=== PATIENT | female | born 1940 | race Caucasian/White ===

== ENCOUNTER 2018-01-19 05:37 | Inpatient (IN) | payer OTHER, MEDICARE ==
[2018-01-19] VITALS (14 sets, daily range): BP systolic 92–185; BP diastolic 55–86; PULSE 51–71; RESP 15–18; TEMP 97.1–98.7; O2SAT 95–99
[~2018-01-19] VITALS: Ht 160 cm; Wt 60.3 kg
[~2018-01-19 05:37] MED LIST: ACTO5TAB; FOLITAB6 PO; NITR.4 SL; ROSU5 OR; ST J81CH PO; VITA400C28 PO
[2018-01-19] MEDS ORDERED: ASPI-516 CHEW (05:56)
[2018-01-19] MEDS ORDERED: VITATAB25 PO (05:56)
[2018-01-19] MEDS ORDERED: ROSU5 PO (05:56)
[2018-01-19] MEDS ORDERED: SODIUM CHLORIDE 0.9% FLUSH 10 ML FLUSH IVF PRN (06:00)
--- NOTE | 2018-01-19 06:11 | PD ---
HPI Chief Complaint: Fall Time Seen by Provider: 05:59 Travel History International Travel<30 days: No Contact w/Intl Traveler<30days: No Traveled to known affect area: No History of Present Illness HPI 77-year-old female patient presents to the ER today, apparently had tripped at home and fell hitting her forehead, has a small laceration to the left forehead , having left hip pain, could not get herself back up since 11 PM last night. She denies any chest pains, shortness of breath, or other injuries. Modifying Factors: None Associated Signs & Symptoms: Trip and fall, head injury, left hip injury Risk Factors: Elderly PFSH Past Medical History Cancer: No Cardiovascular Problems: Yes High Cholesterol: Yes Chest Pain: Yes Coronary Artery Disease: Yes Endocrine: No Genitourinary: No Immune Disorder: No Musculoskeletal: Yes (OSTEOPOROSIS) Neurologic: No Psychiatric: No Respiratory: No Influenza Vaccination: Yes Menopausal: Yes Past Surgical History Eye Surgery: Yes (LEFT EYE SURGERY FOR "WONDERING EYE") Other Surgery: Yes (ANGIOGRAM) Social History Alcohol Use: Yes (1-2 BEERS EVERY EVENING) Tobacco Use: Yes (1/2 PPD) Substance Use: No Allergies-Medications (Allergen,Severity, Reaction): Coded Allergies: No Known Allergies (Verified , 01/19/12) Reported Meds & Prescriptions Reported Meds & Active Scripts Active Reported Crestor (Rosuvastatin Calcium) 5 Mg Tab 5 Mg PO DAILY Vitamin D-[address] (Cholecalciferol) 1,000 Unit Tab 50,000 Units PO DAILY Aspirin 81 Mg Chew 81 Mg CHEW DAILY Review of Systems Except as stated in HPI: all other systems reviewed are Neg Physical Exam Narrative GENERAL: Well-developed elderly white female patient currently and moderate distress. Awake and oriented 3. SKIN: Focused skin assessment warm/dry. HEAD: 2 cm left forehead laceration which is fairly shallow. Normocephalic. EYES: Pupils equal and round. No scleral icterus. No injection or drainage. ENT: No nasal bleeding or discharge. Mucous membranes pink and moist. NECK: Trachea midline. No JVD. CARDIOVASCULAR: Regular rate and rhythm. No murmur appreciated. RESPIRATORY: No accessory muscle use. Clear to auscultation. Breath sounds equal bilaterally. GASTROINTESTINAL: Abdomen soft, non-tender, nondistended. Hepatic and splenic margins not palpable. Pelvis: Stable, tender to palpation in the left hip, and internally rotated and shortened left leg. MUSCULOSKELETAL: No obvious deformities. No clubbing. No cyanosis. No edema. NEUROLOGICAL: Awake and alert. No obvious cranial nerve deficits. Motor grossly within normal limits. Normal speech. PSYCHIATRIC: Appropriate mood and affect; insight and judgment normal. Data Data Last Documented VS Vital Signs Date Time Temp Pulse Resp B/P (MAP) Pulse Ox O2 Delivery O2 Flow Rate FiO2 01/19/18 05:43 97.8 56 18 176/77 (110) 96 Orders Orders Basic Metabolic Panel (Bmp) (01/19/18 06:00) Complete Blood Count With Diff (01/19/18 06:00) Act Partial Throm Time (Ptt) (01/19/18 06:00) Prothrombin Time / Inr (Pt) (01/19/18 06:00) Ct Brain W/O Iv Contrast(Rout) (01/19/18 06:00) Ecg Monitoring (01/19/18 06:00) Iv Access Insert/Monitor (01/19/18 06:00) Oximetry (01/19/18 06:00) Sodium Chloride 0.9% Flush (Ns Flush) (01/19/18 06:00) Creatine Kinase (Cpk) (01/19/18 06:00) Chest, Single Ap (01/19/18 06:00) Hip, Uni(Ap&Lat) W Ap Pelvis (01/19/18 06:00) Admit Order (Ed Use Only) (01/19/18 06:46) Consult Orthopedic (01/19/18 ) Admit To Inpatient (01/19/18 ) Vital Signs (Adult) Q4H (01/19/18 06:46) Activity Bed Rest With Brp (01/19/18 06:46) Diet Npo (01/19/18 Breakfast) Sodium Chlor 0.9% 1000 Ml Inj (Ns 1000 M (01/19/18 06:46) Sodium Chloride 0.9% Flush (Ns Flush) (01/19/18 07:00) Sodium Chloride 0.9% Flush (Ns Flush) (01/19/18 09:00) Acetaminophen (Tylenol) (01/19/18 07:00) Ondansetron Inj (Zofran Inj) (01/19/18 07:00) Comprehensive Metabolic Panel (01/20/18 06:00) Complete Blood Count With Diff (01/20/18 06:00) Pt Request For Service (01/19/18 06:46) Case Management Consult (01/19/18 06:46) Naloxone Inj (Narcan Inj) (01/19/18 07:00) Docusate Sodium-Senna (Veronica-Colace) (01/19/18 09:00) Magnesium Hydroxide Liq (Milk Of Magnesi (01/19/18 07:00) Sennosides (Senokot) (01/19/18 07:00) Bisacodyl Supp (Dulcolax Supp) (01/19/18 07:00) Lactulose Liq (Lactulose Liq) (01/19/18 07:00) Inpatient Certification (01/19/18 ) (Nf) Rosuvastatin (Crestor) (01/19/18 09:00) Labs Laboratory Tests Test 01/19/18 06:00 White Blood Count 12.0 TH/MM3 Red Blood Count 3.23 MIL/MM3 Hemoglobin 11.2 GM/DL Hematocrit 31.5 % Mean Corpuscular Volume 97.4 FL Mean Corpuscular Hemoglobin 34.6 PG Mean Corpuscular Hemoglobin Concent 35.5 % Red Cell Distribution Width 13.3 % Platelet Count 138 TH/MM3 Mean Platelet Volume 8.7 FL Neutrophils (%) (Auto) 83.6 % Lymphocytes (%) (Auto) 8.6 % Monocytes (%) (Auto) 6.7 % Eosinophils (%) (Auto) 0.3 % Basophils (%) (Auto) 0.8 % Neutrophils # (Auto) 10.0 TH/MM3 Lymphocytes # (Auto) 1.0 TH/MM3 Monocytes # (Auto) 0.8 TH/MM3 Eosinophils # (Auto) 0.0 TH/MM3 Basophils # (Auto) 0.1 TH/MM3 CBC Comment DIFF FINAL Differential Comment Prothrombin Time 12.5 SEC Prothromb Time International Ratio 1.2 RATIO Activated Partial Thromboplast Time 24.5 SEC MDM Medical Decision Making Medical Screen Exam Complete: Yes Emergency Medical Condition: Yes Medical Record Reviewed: Yes Interpretation(s) Laboratory Tests Test 01/19/18 06:00 White Blood Count 12.0 TH/MM3 (4.0-11.0) Red Blood Count 3.23 MIL/MM3 (4.00-5.30) Hemoglobin 11.2 GM/DL (11.6-15.3) Hematocrit 31.5 % (35.0-46.0) Mean Corpuscular Hemoglobin 34.6 PG (27.0-34.0) Platelet Count 138 TH/MM3 (150-450) Neutrophils (%) (Auto) 83.6 % (16.0-70.0) Lymphocytes (%) (Auto) 8.6 % (9.0-44.0) Neutrophils # (Auto) 10.0 TH/MM3 (1.8-7.7) Prothrombin Time 12.5 SEC (9.8-11.6) Last 24 hours Impressions Hip and Pelvis X-Ray 01/19/18599 Signed Impressions: CONCLUSION: Acute intertrochanteric left femoral neck fracture. Head CT 01/19/18599 Signed Impressions: CONCLUSION: 1. No acute abnormality is seen. 2. Encephalomalacia at the inferior frontal lobes being more prominent on the right.. Chest X-Ray 01/19/18599 Signed Impressions: CONCLUSION: No acute abnormality is seen. Differential Diagnosis Fall, left hip injury, head injury: Rule out intracranial injuries versus acute fractures versus dislocation of the hip Narrative Course CT the brain is negative for any signs of acute injuries. X-ray shows a left intratrochanteric hip fracture. At this point, case has been discussed with Dr. Guzman for medical admission. Orthopedics has been consulted on the case for further treatment. Diagnosis Primary Impression: Fall Additional Impression: Closed left hip fracture Admitting Information Admitting Physician Requests: it Donna De Leon MD Jan 19, 2018 06:11
[2018-01-19 06:17] LABS: BASOPHIL # 0.1 TH/MM3 (0-0.2); BASOPHIL % 0.8 % (0.0-2.0); EOSINOPHIL % 0.3 % (0.0-4.0); HEMATOCRIT 31.5 % (35.0-46.0); HEMOGLOBIN 11.2 GM/DL (11.6-15.3); LYMPH % 8.6 % (9.0-44.0); MEAN CELL VOLUME 97.4 FL (80.0-100.0); MEAN CORPUSCULAR HEMOGLOBIN 34.6 PG (27.0-34.0); MEAN CORPUSCULAR HGB CONC 35.5 % (32.0-36.0); MEAN PLATELET VOLUME 8.7 FL (7.0-11.0); MONO % 6.7 % (0.0-8.0); MONOCYTE # 0.8 TH/MM3 (0-0.9); NEUT % 83.6 % (16.0-70.0); PLATELET COUNT 138 TH/MM3 (150-450); RED BLOOD COUNT 3.23 MIL/MM3 (4.00-5.30); RED CELL DISTRIBUTION WIDTH 13.3 % (11.6-17.2)
--- NOTE | 2018-01-19 06:37 | RADRPT ---
EXAM DATE: 01/19/2018 6:28 AM EDT AGE/SEX: 77 years / Female INDICATIONS: Trauma and pain due to fall. CLINICAL DATA: This is the patient's initial encounter. Patient reports that signs and symptoms have been present for 1 day and indicates a pain score of 10/10. MEDICAL/SURGICAL HISTORY: Hypercholesterolemia. . C-spine. COMPARISON: [facility], SPINE LUMBAR [facility] (AP & LAT), 01/19/2012. . FINDINGS: There is an intertrochanteric left femoral neck fracture. There is appears to be fractured and the ba tacos lesser trochanter. The left hip joint appears normally aligned. No other fracture is seen. There is a rounded 1.4 cm calcification seen superior to the left femoral neck. This could represent hypert rophic change or a loose body in the hip joint. There is degenerative change at the lumbar spine. CONCLUSION: Acute intertrochanteric left femoral neck fracture. Electronically signed by: Norris Amaro MD 01/19/2018 6:36 AM EDT
--- NOTE | 2018-01-19 06:38 | RADRPT ---
EXAM DATE: 01/19/2018 6:30 AM EDT AGE/SEX: 77 years / Female INDICATIONS: Trauma due to fall. CLINICAL DATA: This is the patient's initial encounter. Patient reports that signs and symptoms have been present for 1 day and indicates a pain score of 0/10. MEDICAL/SURGICAL HISTORY: Hypercholesterolemia. . C-spine. COMPARISON: [facility], CHEST SINGLE AP, 01/17/2015. . FINDINGS: A single AP view of the chest demonstrates the lungs to be symmetrically aerated without evidence of mass, infiltrate or effusion. The cardiomediastinal contours are unremarkable. There is an anterior cervical fusion plate at the lower cervical spine. There is degenerative change of the lower thoracic and upper lumbar spine. CONCLUSION: No acute abnormality is seen. Electronically signed by: Norris Amaro MD 01/19/2018 6:37 AM EDT
--- NOTE | 2018-01-19 06:40 | RADRPT ---
EXAM DATE: 01/19/2018 6:31 AM EDT AGE/SEX: 77 years / Female INDICATIONS: Trauma, fall. CLINICAL DATA: This is the patient's initial encounter. Patient reports that signs and symptoms have been present for 1 day and indicates a pain score of 5/10. MEDICAL/SURGICAL HISTORY: Osteoporosis. None. RADIATION DOSE: 56.35 CTDI (mGy) COMPARISON: No prior [place] exams available for comparison. TECHNIQUE: CT of the head without contrast. Using automated exposure control and adjustment of the mA and/or kV according to patient size, radiation dose was kept as low as reasonably achievable to ob tain optimal diagnostic quality images. FINDINGS: Cerebrum: The ventricles are normal for age. There is low density encephalomalacia at the anterior inferior medial right frontal lobe. There appears to be some minimal low density at the anterior infe rior medial left frontal lobe. No evidence of midline shift, mass lesion, hemorrhage or acute infarct ion. No extraaxial fluid collections are seen. Posterior Fossa: The cerebellum and brainstem are intact. The 4th ventricle is midline. The cerebe llopontine angle is unremarkable. Extracranial: The visualized portion of the orbits is intact. Skull: The calvaria is intact. No evidence of skull fracture. CONCLUSION: 1. No acute abnormality is seen. 2. Encephalomalacia at the inferior frontal lobes being more prominent on the right.. Electronically signed by: Norris Amaro MD 01/19/2018 6:39 AM EDT
[2018-01-19 06:41] LABS: INTERNATIONAL NORMALIZED RATIO 1.2 RATIO; PROTHROMBIN TIME - PATIENT 12.5 SEC (9.8-11.6)
[2018-01-19] MEDS ORDERED: SODIUM CHLOR 0.9% 1000 ML INJ 1,000 ML IV SCH (06:46)
[2018-01-19 06:52] LABS: BICARBONATE 29.3 MEQ/L (21.0-32.0); CALCIUM 9.6 MG/DL (8.5-10.1); CREATININE 0.85 MG/DL (0.50-1.00)
[2018-01-19] MEDS ORDERED: ACETAMINOPHEN 325 MG TAB PO PRN (07:00)
[2018-01-19] MEDS ORDERED: MAGNESIUM HYDROXIDE SUSP 30 ML CUP PO PRN ×2 (07:00→13:00)
[2018-01-19] MEDS ORDERED: NALOXONE HCL 0.4 MG/ML AMP IV PUSH PRN ×2 (07:00→13:00)
[2018-01-19] MEDS ORDERED: BISACODYL 10 MG SUPP RECTAL PRN ×2 (07:00→13:00)
[2018-01-19] MEDS ORDERED: LACTULOSE SYRUP 20 GM/30 ML CUP PO PRN (07:00)
[2018-01-19] MEDS ORDERED: SODIUM CHLORIDE 0.9% FLUSH 10 ML FLUSH IV FLUSH PRN (07:00)
[2018-01-19] MEDS ORDERED: SENNOSIDES 8.6 MG TAB PO PRN (07:00)
[2018-01-19] MEDS ORDERED: ONDANSETRON ODT 4 MG TAB PO PRN (07:15)
[2018-01-19] MEDS: NS + KCL 20 MEQ INJ 1,000 ML IV SCH ×2 (08:00→20:33)
[2018-01-19] MEDS ORDERED: POTASSIUM CHLOR 20 MEQ PREMIX 100 ML IV ONE (08:30)
[2018-01-19] MEDS: SODIUM CHLORIDE 0.9% FLUSH 10 ML FLUSH IV FLUSH SCH ×2 (09:00→20:27)
[2018-01-19] MEDS ORDERED: ENALAPRILAT 1.25 MG/ML VIAL IV PUSH PRN (09:00)
[2018-01-19] MEDS ORDERED: ATORVASTATIN 10 MG TAB PO SCH (09:00)
--- NOTE | 2018-01-19 09:20 | HHI.HP ---
[facility] Service [facility] Primary Care Physician Macy Kinney MD Admission Diagnosis Left hip fracture/fall Diagnoses: (1) Hypokalemia (2) Hyponatremia (3) Coronary artery disease (4) Closed left hip fracture (5) Fall (6) Tobacco abuse Chief Complaint: Fall, hip pain Travel History International Travel<30 Days: No Contact w/Intl Traveler <30 Da: No Traveled to Known Affected Are: No History of Present Illness An-year-old female who presented to the emergency department following a fall last night. She states that she was walking in her house and tripped over some steps. She did hit her head when she fell, but denies loss of consciousness. She denies headache or vision changes. She denies numbness/tingling/ paresthesias in her extremities. She did not have any precipitating symptoms, stating that this was a mechanical trip and fall. She denies lightheadedness or dizziness. Denies chest pain or dyspnea. She does report a history of coronary artery disease and follows with cardiology, Dr. Arriola. Review of Systems Constitutional: DENIES: Fever, Chills, Night Sweats Eyes: DENIES: Blurred vision, Vision loss Ears, nose, mouth, throat: DENIES: Hearing loss Respiratory: DENIES: Cough, Wheezing, Sputum production, Shortness of breath Cardiovascular: DENIES: Chest pain, Palpitations, Dyspnea on Exertion, Lower Extremity Edema Gastrointestinal: DENIES: Abdominal pain, Constipation, Diarrhea, Nausea, Vomiting Genitourinary: DENIES: Urinary frequency, Urinary incontinence, Urgency, Hematuria, Dysuria, Nocturia Musculoskeletal: COMPLAINS OF: Joint pain, DENIES: Muscle aches Integumentary: DENIES: Pruritus, Rash Hematologic/lymphatic: DENIES: Bruising Neurologic: DENIES: Headache Past Family Social History Past Medical History Coronary artery disease Osteoporosis Past Surgical History Left eye surgery Cardiac catheterization Tonsillectomy/adenoidectomy Reported Medications Crestor (Rosuvastatin Calcium) 5 Mg Tab 5 Mg PO DAILY Vitamin D-[address] (Cholecalciferol) 1,000 Unit Tab 50,000 Units PO DAILY Aspirin 81 Mg Chew 81 Mg CHEW DAILY Nitroglycerin sublingual as needed HCTZ 25 mg daily Carvedilol 25 mg daily Folic acid 1 mg daily Allergies: Coded Allergies: No Known Allergies (Verified , 01/19/12) Family History Sister had cancer. She does not know her parents medical history. Social History Smokes about a half pack per day. Drinks 2-4 beers daily. Denies illicit drug use. Physical Exam Vital Signs Vital Signs Date Time Temp Pulse Resp B/P (MAP) Pulse Ox O2 Delivery O2 Flow Rate FiO2 01/19/18 08:00 97.8 63 18 185/81 (115) 97 01/19/18 07:40 97.8 76 16 158/84 (108) 98 01/19/18 07:08 15 98 Room Air 01/19/18 07:08 98.7 56 15 170/86 (114) 98 Room Air 01/19/18 07:08 97.7 56 15 170/86 (114) 99 Room Air 01/19/18 05:43 97.8 56 18 176/77 (110) 96 Physical Exam GENERAL: Well-nourished, well-developed female in no acute distress. HEENT: Abrasion over the left forehead. Pupils equal, round and reactive. Extraocular movements intact. No scleral icterus. No injection or drainage. Oropharynx is clear. Mucous membranes are moist. Dentures. CARDIOVASCULAR: Regular rate and rhythm without murmurs, gallops, or rubs. RESPIRATORY: Clear to auscultation. No wheezes, rales, or rhonchi. Breathing is non-labored. GASTROINTESTINAL: Abdomen soft, non-tender, nondistended. EXTREMITIES: No lower extremity edema. No calf tenderness. 2+ dorsalis pedis pulses bilaterally. PSYCH: Alert and oriented x 3. Laboratory Laboratory Tests Test 01/19/18 06:00 White Blood Count 12.0 Red Blood Count 3.23 Hemoglobin 11.2 Hematocrit 31.5 Mean Corpuscular Volume 97.4 Mean Corpuscular Hemoglobin 34.6 Mean Corpuscular Hemoglobin Concent 35.5 Red Cell Distribution Width 13.3 Platelet Count 138 Mean Platelet Volume 8.7 Neutrophils (%) (Auto) 83.6 Lymphocytes (%) (Auto) 8.6 Monocytes (%) (Auto) 6.7 Eosinophils (%) (Auto) 0.3 Basophils (%) (Auto) 0.8 Neutrophils # (Auto) 10.0 Lymphocytes # (Auto) 1.0 Monocytes # (Auto) 0.8 Eosinophils # (Auto) 0.0 Basophils # (Auto) 0.1 CBC Comment DIFF FINAL Differential Comment Prothrombin Time 12.5 Prothromb Time International Ratio 1.2 Activated Partial Thromboplast Time 24.5 Blood Urea Nitrogen 8 Creatinine 0.85 Random Glucose 129 Calcium Level 9.6 Sodium Level 127 Potassium Level 3.2 Chloride Level 88 Carbon Dioxide Level 29.3 Anion Gap 10 Estimat Glomerular Filtration Rate 65 Total Creatine Kinase 63 Result Diagram: 01/19/1859901/19/18599 Imaging Last Impressions Hip and Pelvis X-Ray 01/19/18599 Signed Impressions: CONCLUSION: Acute intertrochanteric left femoral neck fracture. Head CT 01/19/18599 Signed Impressions: CONCLUSION: 1. No acute abnormality is seen. 2. Encephalomalacia at the inferior frontal lobes being more prominent on the right.. Chest X-Ray 01/19/18599 Signed Impressions: CONCLUSION: No acute abnormality is seen. Caprini VTE Risk Assessment Caprini VTE Risk Assessment: Mod/High Risk (score >= 2) Caprini Risk Assessment Model Point Value = 1 Point Value = 2 Point Value = 3 Point Value = 5 Age 41-60 Minor surgery BMI > 25 kg/m2 Swollen legs Varicose veins or History of unexplained or recurrent spontaneous Oral contraceptives or hormone replacement Sepsis (< 1 month) Serious lung disease, including pneumonia (< 1 month) Abnormal pulmonary function Acute myocardial infarction Congestive heart failure (< 1 month) History of inflammatory bowel disease Medical patient at bed rest Age 61-74 Arthroscopic surgery Major open surgery (> 45 min) Laparoscopic surgery (> 45 min) Malignancy Confined to bed (> 72 hours) Immobilizing plaster cast Central venous access Age >= 75 History of VTE Family history of VTE Factor V Leiden Prothrombin [id number] Lupus anticoagulant Anticardiolipin antibodies Elevated serum homocysteine Heparin-induced thrombocytopenia Other congenital or acquired thrombophilia Stroke (< 1 month) Elective arthroplasty Hip, pelvis, or leg fracture Acute spinal cord injury (< 1 month) Prophylaxis Regimen Total Risk Factor Score Risk Level Prophylaxis Regimen 0-1 Low Early ambulation 2 Moderate Order ONE of the following: *Sequential Compression Device (SCD) *Heparin 5000 units SQ BID 3-4 Higher Order ONE of the following medications: *Heparin 5000 units SQ TID *Enoxaparin/Lovenox 40 mg SQ daily (WT < 150 kg, CrCl > 30 mL/min) *Enoxaparin/Lovenox 30 mg SQ daily (WT < 150 kg, CrCl > 10-29 mL/min) *Enoxaparin/Lovenox 30 mg SQ BID (WT < 150 kg, CrCl > 30 mL/min) AND/OR *Sequential Compression Device (SCD) 5 or more Highest Order ONE of the following medications: *Heparin 5000 units SQ TID (Preferred with Epidurals) *Enoxaparin/Lovenox 40 mg SQ daily (WT < 150 kg, CrCl > 30 mL/min) *Enoxaparin/Lovenox 30 mg SQ daily (WT < 150 kg, CrCl > 10-29 mL/min) *Enoxaparin/Lovenox 30 mg SQ BID (WT < 150 kg, CrCl > 30 mL/min) AND *Sequential Compression Device (SCD) Assessment and Plan Assessment and Plan 1. Trip and fall, left hip fracture: Orthopedic surgery consultation pending. Planning for surgical repair of the fracture. Continue pain control, bowel regimen. 2. Closed head injury: Patient hit her head when she fell and has an abrasion on her forehead. No loss of consciousness. Head CT is negative for acute abnormality. 3. Coronary artery disease: Patient states that she had a cardiac catheterization a few years ago and was told she had "mild blockage", but did not require stent placement. She follows with Dr. Arriola for cardiology. Will request preoperative clearance from cardiology. Continue statin, beta- spencer. 4. Hypokalemia: Supplement potassium and monitor labs. Check magnesium level. 5. Hyponatremia: Continue IV fluids and monitor labs. 6. DVT prophylaxis: SCDs, JUAN hose. Avoid chemical prophylaxis in anticipation of surgery. 7. Tobacco abuse: Counseled to quit smoking. 8. Alcohol use: Patient reports drinking 2-4 beers daily. Monitor for signs of withdrawal. CIWA protocol. At this time patient would be at above average risk for surgery due to electrolyte abnormalities and cardiac history. Will request cardiology evaluation for pre-operative clearance and replace sodium, potassium. Jeff Dominguez MD Jan 19, 2018 09:20
[2018-01-19] MEDS ORDERED: NITR1SUB3 SL (09:24)
[2018-01-19] MEDS ORDERED: CARV25TA PO (09:24)
[2018-01-19] MEDS ORDERED: HYDR25TA5 PO (09:24)
[2018-01-19] MEDS ORDERED: FOLI1TAB6 PO (09:24)
[2018-01-19] MEDS ORDERED: LORazepam 1 MG TAB PO PRN (09:30)
[2018-01-19] MEDS ORDERED: LORazepam 2 MG TAB PO PRN (09:30)
[2018-01-19] MEDS ORDERED: LORazepam 2 MG/ML VIAL IV PUSH PRN ×4 (09:30)
[2018-01-19] MEDS ORDERED: FLUMAZENIL 0.5 MG/5 ML VIAL IV PUSH PRN (09:30)
[2018-01-19] MEDS ORDERED: CARVEDILOL 12.5 MG TAB PO SCH (09:30)
[2018-01-19] MEDS: HYDROCHLOROTHIAZIDE 25 MG TAB PO SCH (09:30)
[2018-01-19] MEDS ORDERED: SODIUM CHLORID 0.9% 500 ML IV PRN (09:45)
[2018-01-19] MEDS ORDERED: LACTATED RINGER'S 1000 ML IV PRN (09:45)
[2018-01-19] MEDS ORDERED: CHLORHEXIDINE GLUCONATE 2 % 1 PACK (2 CLOTHS) TOPICAL PRN (09:45)
[2018-01-19] MEDS ORDERED: METOPROLOL TARTRATE 25 MG TAB PO PRN (09:45)
[2018-01-19] MEDS ORDERED: POVIDONE IODINE 5% (ANTISEPSIS KIT) 4 APPLICATIONS EACH NARE PRN (09:45)
[2018-01-19] MEDS: FOLIC ACID 1 MG TAB PO SCH (10:19)
[2018-01-19] MEDS: DOCUSATE SODIUM 50 MG/SENNA 8.6 MG TAB PO SCH ×2 (10:19→20:24)
[2018-01-19] MEDS ORDERED: GENTAMICIN SULFATE 80 MG/2 ML VIAL ONE (11:06)
[2018-01-19] MEDS ORDERED: ceFAZolin 2 GM PREMIX 50 ML ONE (11:38)
[2018-01-19] MEDS ORDERED: VANCOMYCIN HCL 1000 MG VIAL ONE (11:38)
[2018-01-19] MEDS ORDERED: PROPOFOL 200 MG/20 ML AMP IV ONE (12:00)
[2018-01-19] MEDS ORDERED: ROCURONIUM INJ 50 MG/5 ML SYRINGE IV PUSH ONE (12:00)
[2018-01-19] MEDS ORDERED: MAGNESIUM SULFATE 1 GM PREMIX 100 ML IV SCH (12:00)
[2018-01-19] MEDS ORDERED: NEOSTIGMINE 5 MG/5 ML SYRINGE IV PUSH ONE (12:00)
[2018-01-19] MEDS ORDERED: LACTATED RINGER'S 1000 ML INJ 1,000 ML IV ONE (12:00)
[2018-01-19] MEDS ORDERED: PHENYLEPH/NS 1000 MCG/10 ML SYR IV ONE (12:00)
[2018-01-19] MEDS ORDERED: LIDOCAINE HCL 1% PF 5 ML SYRINGE OTHER ONE (12:00)
[2018-01-19] MEDS ORDERED: ePHEDrine/NS 25 MG/5 ML SYRINGE IV ONE (12:00)
[2018-01-19] MEDS ORDERED: DEXAMETHASONE SOD PHOS 4 MG/ML VIAL IV ONE (12:00)
[2018-01-19] MEDS ORDERED: ONDANSETRON HCL 4 MG/2 ML VIAL IV PUSH ONE (12:00)
[2018-01-19] MEDS ORDERED: GLYCOPYRROLATE 1 MG/5 ML SYRINGE IV PUSH ONE (12:00)
[2018-01-19] MEDS: [UNRECOGNIZED DRUG - OTHER] IV SCH ×4 (12:05→12:34)
[2018-01-19] MEDS: TRANEXAMIC ACID IV SCH ×4 (12:05→12:34)
[2018-01-19] MEDS ORDERED: MIDAZOLAM HCL 2 MG/2 ML VIAL ONE (12:55)
[2018-01-19] MEDS ORDERED: ONDANSETRON HCL 4 MG/2 ML VIAL IVP PRN (13:00)
[2018-01-19] MEDS ORDERED: ZOLPIDEM TARTRATE 5 MG TAB PO PRN (13:00)
[2018-01-19] MEDS ORDERED: TRANEXAMIC ACID INJ 600 MG in SODIUM CHLORIDE 0.9% INJ 100 ML IV SCH (13:00)
[2018-01-19] MEDS ORDERED: MORPHINE SULFATE 4 MG/ML INJ IV PUSH PRN (13:00)
[2018-01-19] MEDS ORDERED: ACETAMINOPHEN/HYDROcodone 325 MG/5 MG TAB PO PRN (13:00)
[2018-01-19] MEDS ORDERED: diphenhydrAMINE HCL 50 MG/ML VIAL IV PUSH PRN (13:00)
[2018-01-19] MEDS ORDERED: Post-op Orders (for Pharmacy) XX ONE (13:00)
[2018-01-19] MEDS ORDERED: ALUMINUM/MAGNESIUM/SIMETH 30 ML CUP PO PRN (13:00)
--- NOTE | 2018-01-19 13:04 | PD.OP ---
cc: Darren Orona MD Operative Report Date of Surgery: Jan 19, 2018 Preoperative Diagnosis: Left hip displaced intertrochanteric fracture, comminuted Postoperative Diagnosis: Same Procedure: Left hip treatment of intertrochanteric fracture with intramedullary nail Anesthesia: General Surgeon: Darren Orona Chyron Operator(s): JIMMY Farooq The surgical procedure was assisted by my Advanced Registered Nurse Practitioner. My PATENT CLERK presence was necessary throughout this case for the manipulation and positioning of the surgical extremity. My PATENT CLERK was assisting me throughout the duration of this procedure. The skill set of an Advance Registered Nurse Practitioner was medically necessary to complete this procedure. During the surgical case, the surgical services assistant was working at the back table and the Advance Registered Nurse Practitioner was directly assisting me. Operation and Findings: Estimated blood loss: 300 cc Implants: Synthes short trochanteric nail, size: 11 x 130 The patient received intravenous vancomycin and Ancef. After the appropriate anesthesia was administered, and the patient was transferred to the fracture table. The fracture was reduced under fluoroscopic imaging. We noticed that the lesser trochanter was fractured and displaced as well from the injury. Overall we obtain good alignment. The hip was prepped and draped in usual sterile fashion. We made incision just proximal to the tip of the greater trochanter. We dissected down through the deep fascia. We used a threaded guidewire at the tip of the greater trochanter which was placed down to the metaphyseal region on both the AP and lateral views. We reamed proximally. Using fluoroscopic analysis we templated the appropriate size for the short nail. This nail was then placed into position under fluoroscopic guidance. We made incision laterally based on the position of the associated jig. We then placed a threaded guidewire into the center, center of the femoral head. The appropriate length for the helical blade was measured. We drilled laterally and then step reamed the femoral neck and femoral head region. The helical blade was placed into position. We then tightened the proximal set screw, which was followed by releasing one turn off of the screw to allow for compression. Traction was released from the leg and then manual compression was performed. The nail was secured distally with a single screw off of the jig using fluoroscopic guidance. We took final fluoroscopic imaging which revealed that the fracture was in very good position. The hardware was in good position as well. The wounds were thoroughly irrigated and then closed with a 0 Vicryl followed by 2-0 Vicryl and cornell. The postoperative plan is to start toe-touch weightbearing. Additionally, we will initiate postoperative antibiotics for 24 hours along with DVT prophylaxis consisting of early mobilization, SCDs, compression stockings, and Lovenox followed by aspirin. Darren Orona MD Jan 19, 2018 13:04
[2018-01-19] MEDS ORDERED: ASPI-183 PO (13:06)
[2018-01-19] MEDS ORDERED: NORC5TAB PO (13:06)
[2018-01-19] MEDS ORDERED: ENOX40IN SQ (13:06)
[2018-01-19] MEDS ORDERED: *morphine SULFATE 4 MG/ML PERIprocedure ONLY ONE (13:38)
--- NOTE | 2018-01-19 13:43 | MB ---
cc: Darren Orona MD DATE: 01/19/2018 REASON FOR CONSULTATION: Left hip fracture. HISTORY OF PRESENT ILLNESS: The patient is a 77-year-old female who had a mechanical fall yesterday when she was going down a step. She said she hit her head and got an abrasion. Was unable to ambulate due to severe pain about the left hip. She denies any numbness or tingling radiating down the leg. She denies new lightheadedness or dizziness. She denies chest pain. She does have a history of coronary artery disease being followed by Dr. Arriola. PAST MEDICAL HISTORY: As above. PAST SURGICAL HISTORY: Cataract surgery, cardiac catheterization, tonsillectomy, adenoidectomy. MEDICATIONS: She is on aspirin. Rest, see the chart. ALLERGIES: NO KNOWN DRUG ALLERGIES. SOCIAL HISTORY: The patient smokes 1/2 pack per day, as does her at the bedside. REVIEW OF SYSTEMS: A 10-point systems negative except as noted in history of present illness. PHYSICAL EXAMINATION: VITAL SIGNS: The patient's temperature is 97.8, pulse is 63, respirations 18, blood pressure 185/81. GENERAL: She is awake, alert and oriented x 3. She has normal affect, insight, and judgment. She does have malodor of smoke. The patient is in no acute distress. HEENT: Her head is atraumatic, other than some small area of abrasion on the anterior aspect of the forehead. Oropharynx is moist. Extraocular muscles are intact. HEART: Regular rate and rhythm. LUNGS: No audible wheeze with normal inspiratory effort, ABDOMEN: Soft, nontender and nondistended. EXTREMITIES: Bilateral upper extremities good active range of motion. Left hip has some deformity with swelling of at least a mild degree. No wounds were noted anterolaterally. She is able to move the toes well on the left foot. She has 1+ dorsalis pedis pulses dorsally. She has a little bit of edema about the left lower extremity. LABORATORY STUDIES: Shows a white cell count of 12.0, hematocrit 31.5, platelets of 138. Glucose 129. Sodium was low at 127. IMAGING STUDIES: X-rays of the left hip shows a displaced intertrochanteric fracture which is basicervical in nature. IMPRESSION: Left hip intertrochanteric fracture. DECISION MAKING: The patient has been cleared from my understanding as far as moving forward with surgical management. We did reade the internal medicine physician notes and then I was told that Dr. Arriola also saw the patient and felt that she was moderate risk, but did not need further optimization prior to considering moving forward with surgical management. She does have a low sodium as well, but they did not feel that we needed to move forward with acute correction. I feel that nonoperative management would likely have very poor outcome in this patient. She likely would not be able to ambulate, which can lead to significant dysfunction including bedsores, DVT, pulmonary embolus, pneumonia and . I do recommend urgent surgical management for this condition in the form of open reduction and internal fixation. She understands the risks of surgery include, but are not limited to injury to nerves, blood vessels, bleeding, infection, failure of hardware, need for reoperation, continued pain, loss of range of motion of associated joints, DVT, pulmonary embolus, pneumonia and . The patient understands that the chronic smoking increases the chance for infection and nonhealing of the fracture and wounds. We discussed smoking cessation. MD BILL Denny/JEFFERY , 11:35 AM , 01:42 PM
[2018-01-19] MEDS ORDERED: DO NOT ADM ANY ANTICOAGULANT DRUGS PRN (13:45)
--- NOTE | 2018-01-19 14:24 | MB ---
cc: Mansoor Arriola MD DATE: 01/19/2018 HISTORY OF PRESENT ILLNESS: Loraine is a very pleasant 77-year-old lady with history of coronary artery disease, tobacco use, and alcohol use, who had a fall not involving a loss of consciousness, resulting in a broken hip. She is preop for noncardiac surgery. Prior to the fall, she noted no dyspnea on exertion or chest pain. She says she is able to walk 2 blocks without getting short of breath. She thinks she can climb 2 flights of stairs without getting short of breath; however, she does not have access to stairs. Otherwise, denies any fevers, chills, cough, GI or bleeding, PND, orthopnea, syncope, or dizziness. PAST MEDICAL HISTORY: Includes osteoporosis, hyperlipidemia, eye surgery. SOCIAL HISTORY: Drinks 2-4 beers a day, smokes 1/2 pack of cigarettes a day. ALLERGIES: NO KNOWN ALLERGIES. MEDICATIONS PRIOR TO ADMISSION: 1. Crestor. 2. Vitamin D. 3. Aspirin 81 mg a day. MEDICATIONS IN THE HOSPITAL: 1. Tranexamic acid IV. 2. Carvedilol 25 mg daily. 3. Folic acid 1 mg daily. 4. Hydrochlorothiazide 25 mg daily. 5. Atorvastatin 10 mg daily. PHYSICAL EXAMINATION: VITAL SIGNS: Blood pressure 185/81, pulse 63, temperature 97.8, respiratory rate 18. GENERAL: She is alert and oriented x 3, in no acute distress. NECK: Supple. No JVD. No bruit. CARDIOVASCULAR: S1, S2. No murmurs, rubs, or gallops. LUNGS: Clear to auscultation bilaterally. ABDOMEN: Soft, nontender, and nondistended with positive bowel sounds. EXTREMITIES: No extremity edema. LABORATORY DATA: White count 12.0, hemoglobin 11.2, hematocrit 31.5, platelet count 138. Sodium 127, potassium 3.2, chloride 88, BUN 8, creatinine 0.85, magnesium 1.8. CK 63. INR 1.2. DIAGNOSTIC STUDIES: Hip and pelvic: X-ray acute intertrochanteric left femoral neck fracture. Head CT: No acute abnormality is seen. Encephalomalacia of the inferior frontal lobes being more prominent on the right. Chest x-ray: No acute abnormalities seen. EKG: Sinus bradycardia at 54 beats per minute, left anterior fascicular block, nonspecific ST-T wave changes. DIAGNOSES: 1. Left femoral neck fracture. 2. Coronary artery disease. 3. Tobacco abuse. 4. Alcohol abuse. 5. Hyperlipidemia. 6. Elevated white count. 7. Thrombocytopenia. 8. Anemia. 9. Hyponatremia. 10. Hyperglycemia. The patient is able to walk 2 blocks without getting short of breath. She thinks she can walk up 2 flights of stairs without getting short of breath. She is asymptomatic and appears to be able to achieve 5 METS. Therefore, she is moderate risk for noncardiac surgery. Strongly recommend smoking cessation. Recommend restart aspirin 81 mg a day when cleared by orthopedic surgery. We will change her Coreg to 25 twice a day and change her Lipitor to 40 mg at bedtime. Recommend continued telemetry monitoring. MD BALWINDER Hunter/JEFFERY , 11:53 AM , 02:22 PM
--- NOTE | 2018-01-19 14:57 | RADRPT ---
EXAM DATE: 01/19/2018 2:52 PM EDT AGE/SEX: 77 years / Female INDICATIONS: Left hip pinning. CLINICAL DATA: This is the patient's subsequent encounter. Patient reports that signs and symptoms h ave been present for 2 days and indicates a pain score of Nonresponsive. MEDICAL/SURGICAL HISTORY: . Hypercholesterolemia . C-spine. COMPARISON: C, HIP LEFT (AP&LAT 2/3VWS) W AP PELVIS, 01/19/2018. . FINDINGS: Multiple views in the operating room show nail and kuldeep fixation of the intertrochanteric fracture of the left femur. Alignment is near-anatomic. 14 mm nonacute ossicle or calcification projects superior to the joint, nonspecific but could be a le ft buttock injection granuloma. It is extra-articular and of no acute clinical significance. CONCLUSION: Interim nail and kuldeep fixation of left intertrochanteric fracture. Near-anatomic alignment. No acute c omplication demonstrated. Electronically signed by: Norris Shah MD 01/19/2018 2:55 PM EDT
[2018-01-19] MEDS: ACETAMINOPHEN/HYDROcodone 325 MG/5 MG TAB PO PRN (17:34)
[2018-01-19] MEDS ORDERED: WALKER WHEELS/F1 MIS (18:05)
[2018-01-19] MEDS ORDERED: COMMODE 3-IN-11 MIS (18:05)
[2018-01-19] MEDS: CARVEDILOL 12.5 MG TAB PO SCH (20:21)
[2018-01-19] MEDS: ATORVASTATIN 40 MG TAB PO SCH (20:24)
[2018-01-19] MEDS: SODIUM CHLOR 0.9% 1000 ML INJ 1,000 ML IV SCH (22:51)
[2018-01-20] VITALS (12 sets, daily range): BP systolic 92–148; BP diastolic 50–71; PULSE 59–88; RESP 16–19; TEMP 97.8–98.6; O2SAT 95–99
[2018-01-20 05:21] LABS: AUTOMATED NEUTROPHIL # 7.7 TH/MM3 (1.8-7.7); BASOPHIL % 0.1 % (0.0-2.0); LYMPH % 9.1 % (9.0-44.0); LYMPHOCYTE # 0.8 TH/MM3 (1.0-4.8); MEAN CORPUSCULAR HEMOGLOBIN 34.4 PG (27.0-34.0); MEAN CORPUSCULAR HGB CONC 35.4 % (32.0-36.0); MEAN PLATELET VOLUME 9.3 FL (7.0-11.0); MONO % 7.9 % (0.0-8.0); MONOCYTE # 0.7 TH/MM3 (0-0.9); NEUT % 82.9 % (16.0-70.0); PLATELET COUNT 105 TH/MM3 (150-450); RED BLOOD COUNT 2.05 MIL/MM3 (4.00-5.30); RED CELL DISTRIBUTION WIDTH 13.1 % (11.6-17.2); WHITE BLOOD COUNT 9.3 TH/MM3 (4.0-11.0)
[2018-01-20 05:55] LABS: ALBUMIN 2.8 GM/DL (3.4-5.0); ALKALINE PHOSPHATASE 39 U/L (45-117); ALT (GPT) 22 U/L (10-53); AST (GOT) 16 U/L (15-37); BICARBONATE 24.5 MEQ/L (21.0-32.0); BLOOD UREA NITROGEN 10 MG/DL (7-18); CALCIUM 8.5 MG/DL (8.5-10.1); CHLORIDE 94 MEQ/L (98-107); CREATININE 0.77 MG/DL (0.50-1.00); GLOMERULAR FILTRATION RATE 72 ML/MIN (>89); GLUCOSE,RANDOM 126 MG/DL (74-106); HEMATOCRIT 19.9 % (35.0-46.0); MAGNESIUM 1.9 MG/DL (1.5-2.5); SODIUM (NA) 129 MEQ/L (136-145); TOTAL BILIRUBIN ADULT 0.9 MG/DL (0.2-1.0); TOTAL PROTEIN 5.2 GM/DL (6.4-8.2)
[2018-01-20] MEDS ORDERED: SODIUM CHLOR 0.9% 250 ML INJ 250 ML IV ONE (06:15)
--- NOTE | 2018-01-20 08:44 | EKG ---
Date Performed: 01/19/2018 Time Performed: 05:54:00 PTAGE: 77 years EKG: SINUS BRADYCARDIA Left axis deviation Nonspecific T-wave change Since PREVIOUS TRACING , no significant change. PREVIOUS TRACIN01/17/2015 17.38 DOCTOR: Ronnie Tian Interpretating Date/Time 01/20/2018 08:43:10
--- NOTE | 2018-01-20 09:07 | HHI.PR ---
Subjective Remarks Follow-up visit status post fall, left hip fracture, status post left hip IM nailing. Patient seen and examined today. at the bedside. Discussed with patient and lab result anemia. Will have blood transfusion. Patient states she is doing okay. No acute issues overnight. Complaints of left hip and groin pain, waiting for pain medications. Physical therapy working with patient. Otherwise, denies SOB/ dyspnea. Denies chest pain, palpitations, headaches, dizziness. Denies fevers, chills, n/v/d. Denies dysuria. Objective Vitals Vital Signs Date Time Temp Pulse Resp B/P (MAP) Pulse Ox O2 Delivery O2 Flow Rate FiO2 01/20/18 08:00 97.9 66 18 107/53 (71) 95 01/20/18 03:48 65 01/20/18 03:00 97.8 59 17 93/67 (76) 96 01/19/18 23:46 62 01/19/18 23:26 97.6 67 17 97/55 (69) 95 01/19/18 22:17 Nasal Cannula 2.00 01/19/18 21:50 98 Nasal Cannula 2.00 01/19/18 19:52 62 01/19/18 19:21 97.2 71 18 92/56 (68) 98 01/19/18 19:07 18 01/19/18 16:37 97 Nasal Cannula 3.00 01/19/18 16:00 97.1 70 18 109/67 (81) 95 01/19/18 15:00 51 01/19/18 13:42 61 16 115/66 (82) 98 Nasal Cannula 3 01/19/18 13:30 66 16 115/69 (84) 98 Nasal Cannula 3 01/19/18 13:30 98.1 60 18 118/64 (82) 96 01/19/18 13:15 62 16 110/62 (78) 98 Nasal Cannula 3 01/19/18 13:12 97.4 68 16 116/63 (80) 100 Nasal Cannula 3 01/19/18 11:15 98.0 60 17 135/63 (87) 95 I/O 01/19/18 01/19/18 01/19/18 01/20/18 01/20/18 01/20/18 07:00 15:00 23:00 07:00 15:00 23:00 Intake Total 200 ml 500 ml 680 ml Output Total 300 ml Balance -100 ml 500 ml 680 ml Intake Oral 500 ml 480 ml IV Total 200 ml Other 200 ml Output Estimated Blood Loss 300 ml # Voids 2 4 # Bowel Movements 0 Result Diagram: 01/20/1843501/20/18435 Imaging Last Impressions Hip and Pelvis X-Ray 01/19/18 06 Signed Impressions: CONCLUSION: Acute intertrochanteric left femoral neck fracture. Head CT 01/19/18599 Signed Impressions: CONCLUSION: 1. No acute abnormality is seen. 2. Encephalomalacia at the inferior frontal lobes being more prominent on the right.. Chest X-Ray 01/19/18 06 Signed Impressions: CONCLUSION: No acute abnormality is seen. Hip X-Ray 01/19/18 0000 Signed Impressions: CONCLUSION: Interim nail and kuldeep fixation of left intertrochanteric fracture. Near-anatomic alignment. No acute complication demonstrated. Objective Remarks GENERAL: This is a well-nourished, well-developed patient, in no apparent distress. SKIN: Warm and dry. Pale HEENT: Normocephalic. Pupils equal round and reactive. Nose without bleeding. Airway patent. NECK: Trachea midline. CARDIOVASCULAR: Regular rate and rhythm without murmurs, gallops, or rubs. RESPIRATORY: Clear to auscultation. Breath sounds equal bilaterally. No wheezes , rales, or rhonchi. GASTROINTESTINAL: Abdomen soft, non-tender, nondistended. Bowel Sounds normoactive x4. MUSCULOSKELETAL: Extremities without clubbing, cyanosis. Left lower extremity edema +1. Left lower extremity Nagi wrap in place, incision site dressing clean dry and intact. NEUROLOGICAL: Awake and alert. Oriented to place, person. No focal neuro deficit. Moves all extremities. Normal speech. A/P Problem List: (1) Hypokalemia ICD Code: E87.6 - Hypokalemia (2) Hyponatremia ICD Code: E87.1 - Hypo-osmolality and hyponatremia (3) Coronary artery disease ICD Code: I25.10 - Atherosclerotic heart disease of [place] coronary artery without angina pectoris (4) Closed left hip fracture ICD Code: S72.002A - Fracture of unspecified part of neck of left femur, initial encounter for closed fracture Status: Acute (5) Fall ICD Code: W19.XXXA - Unspecified fall, initial encounter Status: Acute (6) Tobacco abuse ICD Code: Z72.0 - Tobacco abuse Status: Acute Assessment and Plan 77-year-old female who presented to the emergency department following a fall. Trip and fall, left hip fracture Left hip fracture, status post left hip IM nailing -Orthopedic surgery follwoing -Continue pain control, bowel regimen -PT eval and treat Anemia, post procedure -Transfuse PRBC -Monitor H&H Closed head injury: -Patient hit her head when she fell and has an abrasion on her forehead. No loss of consciousness. -Head CT is negative for acute abnormality. Coronary artery disease: Patient states that she had a cardiac catheterization a few years ago and was told she had "mild blockage", but did not require stent placement. She follows with Dr. Arriola for cardiology. -Preoperative clearance from cardiology. -Continue statin, beta-spencer. Hypokalemia: -Supplement potassium and monitor labs. -Improved Hyponatremia: -Continue IV fluids and monitor labs. -Improved Tobacco abuse: -Counseled to quit smoking. Alcohol use: -Patient reports drinking 2-4 beers daily. -Monitor for signs of withdrawal. [facility] protocol. DVT prophylaxis: SCDs, Lovenox Discharge Planning Plan to DC to SNF when clinically improved. Case management consult for placement. Patient and wanted to go to [facility] [facility]. Problem Qualifiers (1) Closed left hip fracture: Qualified Codes: S72.002A - Fracture of unspecified part of neck of left femur , initial encounter for closed fracture Krish Figueredo Jan 20, 2018 09:07
[2018-01-20] MEDS: NS + KCL 20 MEQ INJ 1,000 ML IV SCH ×2 (09:40→19:45)
[2018-01-20] MEDS: FOLIC ACID 1 MG TAB PO SCH (09:41)
[2018-01-20] MEDS: HYDROCHLOROTHIAZIDE 25 MG TAB PO SCH (09:41)
[2018-01-20] MEDS: DOCUSATE SODIUM 50 MG/SENNA 8.6 MG TAB PO SCH ×2 (09:41→20:49)
[2018-01-20] MEDS: CARVEDILOL 12.5 MG TAB PO SCH ×2 (09:41→20:50)
[2018-01-20] MEDS: SODIUM CHLORIDE 0.9% FLUSH 10 ML FLUSH IV FLUSH SCH ×2 (09:43→20:50)
--- NOTE | 2018-01-20 10:08 | PD.ORT.PN ---
Subjective Post Op Day #: 1 Subjective Remarks Patient is resting comfortably in bed with c/o mild left groin pain with movement. at bedside. Objective Vitals Vital Signs Date Time Temp Pulse Resp B/P (MAP) Pulse Ox O2 Delivery O2 Flow Rate FiO2 01/20/18 08:00 97.9 66 18 107/53 (71) 95 01/20/18 03:48 65 01/20/18 03:00 97.8 59 17 93/67 (76) 96 01/19/18 23:46 62 01/19/18 23:26 97.6 67 17 97/55 (69) 95 01/19/18 22:17 Nasal Cannula 2.00 01/19/18 21:50 98 Nasal Cannula 2.00 01/19/18 19:52 62 01/19/18 19:21 97.2 71 18 92/56 (68) 98 01/19/18 19:07 18 01/19/18 16:37 97 Nasal Cannula 3.00 01/19/18 16:00 97.1 70 18 109/67 (81) 95 01/19/18 15:00 51 01/19/18 13:42 61 16 115/66 (82) 98 Nasal Cannula 3 01/19/18 13:30 66 16 115/69 (84) 98 Nasal Cannula 3 01/19/18 13:30 98.1 60 18 118/64 (82) 96 01/19/18 13:15 62 16 110/62 (78) 98 Nasal Cannula 3 01/19/18 13:12 97.4 68 16 116/63 (80) 100 Nasal Cannula 3 01/19/18 11:15 98.0 60 17 135/63 (87) 95 I/O 01/19/18 01/19/18 01/19/18 01/20/18 01/20/18 01/20/18 06:59 14:59 22:59 06:59 14:59 22:59 Intake Total 200 ml 500 ml 680 ml Output Total 300 ml Balance -100 ml 500 ml 680 ml Intake Oral 500 ml 480 ml IV Total 200 ml Other 200 ml Output Estimated Blood Loss 300 ml # Voids 2 4 # Bowel Movements 0 Result Diagram: 01/20/18 0436 01/20/18 0436 Procedures Left hip intertrochanteric hip fracture with ORIF with IMN Objective Remarks Dressing is C/D/I. Pressure dressing to distal dressing secondary to small hematoma. EHL/TA/G intact. 2 + pedal pulse. Calf is soft and nontender. + SILT distally Assessment & Plan Ortho Post Op Day #: 1 Problem List: Assessment and Plan POD #1: left hip intertrochanteric fracture with ORIF with IMN Post op anemia 1. TTWB LLE 2. Lovenox followed by [facility] for DVT prophylaxis. 3. Ice to the left hip PRN 4. Stable per ortho for discharge when medically stable 5. F/U in the office in 1-[address] Orona or JIMMY Lopez 6. Anemia being managed by medical. Patient has PRBCs ordered. Dk Oropeza Jan 20, 2018 10:08
[2018-01-20] MEDS: ENOXAPARIN SODIUM 40 MG/0.4 ML SYRINGE SQ SCH (12:00)
--- NOTE | 2018-01-20 12:06 | PD.CARD.PN ---
Subjective Subjective Remarks 1 brief episode of chest pain lasting seconds, currently assymptomatic in nad getting blood transfusion Objective Medications Current Medications Medications (Trade) Dose Ordered Sig/Yaa Route Start Time Stop Time Status Last Admin (NS Flush) 2 ml UNSCH PRN IV FLUSH 01/19/18 07:00 (NS Flush) 2 ml BID IV FLUSH 01/19/18 09:00 01/20/18 09:43 (Tylenol) 650 mg Q4H PRN PO 01/19/18 07:00 (Zofran Odt) 4 mg Q6H PRN PO 01/19/18 07:15 (Narcan Inj) 0.4 mg UNSCH PRN IV PUSH 01/19/18 07:00 (Veronica-Colace) 1 tab BID PO 01/19/18 09:00 01/20/18 09:41 (Milk Of Magnesia Liq) 30 ml Q12H PRN PO 01/19/18 07:00 (Senokot) 17.2 mg Q12H PRN PO 01/19/18 07:00 (Dulcolax Supp) 10 mg DAILY PRN RECTAL 01/19/18 07:00 (Lactulose Liq) 30 ml DAILY PRN PO 01/19/18 07:00 Potassium Chloride/Sodium Chloride 1,000 ml @ 84 mls/hr [id number] IV 01/19/18 08:00 01/20/18 09:40 (Vasotec Inj) 1.25 mg Q6H PRN IV PUSH 01/19/18 09:00 (Romazicon Inj) 0.2 mg Q1M PRN IV PUSH 01/19/18 09:30 (Ativan) 1 mg Q4H PRN PO 01/19/18 09:30 (Ativan Inj) 1 mg Q4H PRN IV PUSH 01/19/18 09:30 (Ativan) 2 mg Q2H PRN PO 01/19/18 09:30 (Ativan Inj) 2 mg Q2H PRN IV PUSH 01/19/18 09:30 (Ativan Inj) 2 mg Q1H PRN IV PUSH 01/19/18 09:30 (Ativan Inj) 2 mg Q15M PRN IV PUSH 01/19/18 09:30 (Folate) 1 mg DAILY PO 01/19/18 09:30 01/20/18 09:41 (Hydrodiuril) 25 mg DAILY PO 01/19/18 09:30 01/20/18 09:41 Lactated Ringer's 1,000 ml @ 30 mls/hr Q24H PRN IV 01/19/18 09:45 01/22/18 09:44 Sodium Chloride 500 ml @ 30 mls/hr [id number] PRN IV 01/19/18 09:45 01/22/18 09:44 (Lopressor) 25 mg PRUNER PRN PO 01/19/18 09:45 01/22/18 09:44 (Betadine 5% Antisepsis Kit) 1 applic PRUNER PRN EACH NARE 01/19/18 09:45 01/22/18 09:44 (Chlorhexidine 2% Cloth) 3 pack PRUNER PRN TOPICAL 01/19/18 09:45 01/22/18 09:44 (Coreg) 12.5 mg Q12HR PO 01/19/18 21:00 01/20/18 09:41 (Lipitor) 40 mg HS PO 01/19/18 21:00 01/19/18 20:24 Sodium Chloride 1,000 ml @ 100 mls/hr Q10H IV 01/19/18 12:58 (Lovenox Inj) 40 mg Q24H SQ 01/20/18 12:00 01/29/18 12:01 ([place] 5-325 Mg) 1 tab Q4H PRN PO 01/19/18 13:00 01/19/18 17:34 ([place] 5-325 Mg) 2 tab Q4H PRN PO 01/19/18 13:00 (Theragran M Tab) 1 tab BID PO 01/20/18 21:00 03/21/18 20:59 (Colace) 100 mg BID PO 01/20/18 21:00 (Mag-Al Plus Susp Liq) 30 ml Q6H PRN PO 01/19/18 13:00 (Ambien) 5 mg HS PRN PO 01/19/18 13:00 (Dulcolax Supp) 10 mg DAILY PRN RECTAL 01/19/18 13:00 (Milk Of Magnesia Liq) 30 ml DAILY PRN PO 01/19/18 13:00 (Narcan Inj) 0.4 mg UNSCH PRN IV PUSH 01/19/18 13:00 (Benadryl Inj) 25 mg Q6H PRN IV PUSH 01/19/18 13:00 (Morphine Inj) 2 mg Q3H PRN IV PUSH 01/19/18 13:00 ([facility] ALL NURSING DEPARTME... UNSCH PRN .XX 01/19/18 13:45 01/20/18 13:44 Sodium Chloride 250 ml @ 15 mls/hr ONCE ONCE IV 01/20/18 06:15 01/20/18 22:54 01/20/18 09:42 Vital Signs / I&O Vital Signs Date Time Temp Pulse Resp B/P (MAP) Pulse Ox O2 Delivery O2 Flow Rate FiO2 01/20/18 10:35 98.1 77 16 100/50 99 01/20/18 10:20 97.9 66 18 107/53 99 01/20/18 08:00 97.9 66 18 107/53 (71) 95 01/20/18 03:48 65 01/20/18 03:00 97.8 59 17 93/67 (76) 96 01/19/18 23:46 62 01/19/18 23:26 97.6 67 17 97/55 (69) 95 01/19/18 22:17 Nasal Cannula 2.00 01/19/18 21:50 98 Nasal Cannula 2.00 01/19/18 19:52 62 01/19/18 19:21 97.2 71 18 92/56 (68) 98 01/19/18 19:07 18 01/19/18 16:37 97 Nasal Cannula 3.00 01/19/18 16:00 97.1 70 18 109/67 (81) 95 01/19/18 15:00 51 01/19/18 13:42 61 16 115/66 (82) 98 Nasal Cannula 3 01/19/18 13:30 66 16 115/69 (84) 98 Nasal Cannula 3 01/19/18 13:30 98.1 60 18 118/64 (82) 96 01/19/18 13:15 62 16 110/62 (78) 98 Nasal Cannula 3 01/19/18 13:12 97.4 68 16 116/63 (80) 100 Nasal Cannula 3 I/O 01/19/18 01/19/18 01/19/18 01/20/18 01/20/18 01/20/18 07:00 15:00 23:00 07:00 15:00 23:00 Intake Total 200 ml 500 ml 680 ml 2 ml Output Total 300 ml Balance -100 ml 500 ml 680 ml 2 ml Intake Oral 500 ml 480 ml IV Total 200 ml Blood Product IV Normal Saline Flush 2 ml Other 200 ml Output Estimated Blood Loss 300 ml # Voids 2 4 # Bowel Movements 0 Laboratory GENERAL: SKIN: Warm and dry. HEAD: Normocephalic. EYES: No scleral icterus. No injection or drainage. NECK: Supple, trachea midline. No JVD or lymphadenopathy. CARDIOVASCULAR: Regular rate and rhythm without murmurs, gallops, or rubs. RESPIRATORY: Breath sounds equal bilaterally. No accessory muscle use. GASTROINTESTINAL: Abdomen soft, non-tender, nondistended. MUSCULOSKELETAL: No cyanosis, or edema. BACK: Nontender without obvious deformity. No CVA tenderness. Laboratory Tests Test 01/20/18 04:36 White Blood Count 9.3 TH/MM3 Red Blood Count 2.05 MIL/MM3 Hemoglobin 7.0 GM/DL Hematocrit 19.9 % Mean Corpuscular Volume 97.0 FL Mean Corpuscular Hemoglobin 34.4 PG Mean Corpuscular Hemoglobin Concent 35.4 % Red Cell Distribution Width 13.1 % Platelet Count 105 TH/MM3 Mean Platelet Volume 9.3 FL Neutrophils (%) (Auto) 82.9 % Lymphocytes (%) (Auto) 9.1 % Monocytes (%) (Auto) 7.9 % Eosinophils (%) (Auto) 0.0 % Basophils (%) (Auto) 0.1 % Neutrophils # (Auto) 7.7 TH/MM3 Lymphocytes # (Auto) 0.8 TH/MM3 Monocytes # (Auto) 0.7 TH/MM3 Eosinophils # (Auto) 0.0 TH/MM3 Basophils # (Auto) 0.0 TH/MM3 CBC Comment DIFF FINAL Differential Comment Blood Urea Nitrogen 10 MG/DL Creatinine 0.77 MG/DL Random Glucose 126 MG/DL Total Protein 5.2 GM/DL Albumin 2.8 GM/DL Calcium Level 8.5 MG/DL Magnesium Level 1.9 MG/DL Alkaline Phosphatase 39 U/L Aspartate Amino Transf (AST/SGOT) 16 U/L Alanine Aminotransferase (ALT/SGPT) 22 U/L Total Bilirubin 0.9 MG/DL Sodium Level 129 MEQ/L Potassium Level 3.6 MEQ/L Chloride Level 94 MEQ/L Carbon Dioxide Level 24.5 MEQ/L Anion Gap 11 MEQ/L Estimat Glomerular Filtration Rate 72 ML/MIN Assessment and Plan Problem List: (1) Atypical chest pain ICD Codes: R07.89 - Other chest pain (2) Anemia ICD Codes: D64.9 - Anemia, unspecified (3) Fall ICD Codes: W19.XXXA - Unspecified fall, initial encounter Status: Acute (4) Coronary artery disease ICD Codes: I25.10 - Atherosclerotic heart disease of [place] coronary artery without angina pectoris (5) Closed left hip fracture ICD Codes: S72.002A - Fracture of unspecified part of neck of left femur, initial encounter for closed fracture Status: Acute (6) Tobacco abuse ICD Codes: Z72.0 - Tobacco abuse Status: Acute Assessment and Plan 1.) CAD - pod # 1 hip surgery, 1 brief episode of chest pain, getting transfusion, start aspirin 81 mg qd if/when ok with orthopedic surgery, patient advised to discontinue tobacco Problem Qualifiers (1) Closed left hip fracture: Qualified Codes: S72.002A - Fracture of unspecified part of neck of left femur , initial encounter for closed fracture Mansoor Arriola MD Jan 20, 2018 12:06
[2018-01-20 17:00] LABS: HEMOGLOBIN 8.1 GM/DL (11.6-15.3)
[2018-01-20] MEDS: ACETAMINOPHEN/HYDROcodone 325 MG/5 MG TAB PO PRN (17:42)
[2018-01-20] MEDS: SODIUM CHLOR 0.9% 1000 ML INJ 1,000 ML IV SCH (18:58)
[2018-01-20] MEDS: ATORVASTATIN 40 MG TAB PO SCH (20:49)
[2018-01-20] MEDS: MULTIVITAMINS/MINERALS THERAPEUTIC TAB PO SCH (20:50)
[2018-01-20] MEDS: DOCUSATE SODIUM 100 MG CAP PO SCH (20:50)
[2018-01-21] VITALS (7 sets, daily range): BP systolic 92–132; BP diastolic 50–61; PULSE 65–77; RESP 17–18; TEMP 97.5–98.3; O2SAT 95–96
[2018-01-21] MEDS: ACETAMINOPHEN/HYDROcodone 325 MG/5 MG TAB PO PRN ×3 (03:08→15:21)
[2018-01-21] MEDS: SODIUM CHLOR 0.9% 1000 ML INJ 1,000 ML IV SCH ×2 (04:58→14:58)
[2018-01-21] MEDS: NS + KCL 20 MEQ INJ 1,000 ML IV SCH (07:40)
[2018-01-21] MEDS: HYDROCHLOROTHIAZIDE 25 MG TAB PO SCH (08:45)
[2018-01-21] MEDS: FOLIC ACID 1 MG TAB PO SCH (08:45)
[2018-01-21] MEDS: MULTIVITAMINS/MINERALS THERAPEUTIC TAB PO SCH ×2 (08:45→22:11)
[2018-01-21] MEDS: CARVEDILOL 12.5 MG TAB PO SCH ×2 (08:45→22:11)
[2018-01-21] MEDS: DOCUSATE SODIUM 50 MG/SENNA 8.6 MG TAB PO SCH ×2 (08:45→22:11)
[2018-01-21] MEDS: DOCUSATE SODIUM 100 MG CAP PO SCH ×2 (08:45→22:11)
[2018-01-21] MEDS: SODIUM CHLORIDE 0.9% FLUSH 10 ML FLUSH IV FLUSH SCH ×2 (08:46→22:11)
--- NOTE | 2018-01-21 10:25 | HHI.DS ---
Discharge Summary Admission Date Jan 19, 2018 at 06:47 Discharge Date: Jan 21, 2018 Admitting Diagnosis Left hip fracture/fall (1) Closed left hip fracture ICD Code: S72.002A - Fracture of unspecified part of neck of left femur, initial encounter for closed fracture Diagnosis: Principal Status: Acute (2) Fall ICD Code: W19.XXXA - Unspecified fall, initial encounter Diagnosis: Principal Status: Acute (3) Hypokalemia ICD Code: E87.6 - Hypokalemia Diagnosis: Secondary Status: Resolved (4) Hyponatremia ICD Code: E87.1 - Hypo-osmolality and hyponatremia Diagnosis: Secondary Status: Resolved (5) Coronary artery disease ICD Code: I25.10 - Atherosclerotic heart disease of [place] coronary artery without angina pectoris Diagnosis: Secondary Status: Chronic (6) Tobacco abuse ICD Code: Z72.0 - Tobacco abuse Diagnosis: Secondary Status: Chronic (7) Anemia due to blood loss, acute ICD Code: D62 - Acute posthemorrhagic anemia Diagnosis: Secondary Status: Acute Procedures January 19 left hip fracture status post IM nailing with Dr. Orona Brief History - From Admission An-year-old female who presented to the emergency department following a fall last night. She states that she was walking in her house and tripped over some steps. She did hit her head when she fell, but denies loss of consciousness. She denies headache or vision changes. She denies numbness/tingling/ paresthesias in her extremities. She did not have any precipitating symptoms, stating that this was a mechanical trip and fall. She denies lightheadedness or dizziness. Denies chest pain or dyspnea. She does report a history of coronary artery disease and follows with cardiology, Dr. Arriola. CBC/BMP: 01/20/18 1635 01/20/18 0436 Significant Findings Laboratory Tests Test 01/19/18 06:00 01/20/18 04:36 01/20/18 16:35 White Blood Count 12.0 TH/MM3 (4.0-11.0) Red Blood Count 3.23 MIL/MM3 (4.00-5.30) 2.05 MIL/MM3 (4.00-5.30) Hemoglobin 11.2 GM/DL (11.6-15.3) 7.0 GM/DL (11.6-15.3) 8.1 GM/DL (11.6-15.3) Hematocrit 31.5 % (35.0-46.0) 19.9 % (35.0-46.0) 23.0 % (35.0-46.0) Mean Corpuscular Hemoglobin 34.6 PG (27.0-34.0) 34.4 PG (27.0-34.0) Platelet Count 138 TH/MM3 (150-450) 105 TH/MM3 (150-450) Neutrophils (%) (Auto) 83.6 % (16.0-70.0) 82.9 % (16.0-70.0) Lymphocytes (%) (Auto) 8.6 % (9.0-44.0) Neutrophils # (Auto) 10.0 TH/MM3 (1.8-7.7) Prothrombin Time 12.5 SEC (9.8-11.6) Random Glucose 129 MG/DL (74-106) 126 MG/DL (74-106) Sodium Level 127 MEQ/L (136-145) 129 MEQ/L (136-145) Potassium Level 3.2 MEQ/L (3.5-5.1) Chloride Level 88 MEQ/L (98-107) 94 MEQ/L (98-107) Estimat Glomerular Filtration Rate 65 ML/MIN (>89) 72 ML/MIN (>89) Lymphocytes # (Auto) 0.8 TH/MM3 (1.0-4.8) Total Protein 5.2 GM/DL (6.4-8.2) Albumin 2.8 GM/DL (3.4-5.0) Alkaline Phosphatase 39 U/L (45-117) Imaging Last Impressions Hip and Pelvis X-Ray 01/19/18599 Signed Impressions: CONCLUSION: Acute intertrochanteric left femoral neck fracture. Head CT 01/19/18599 Signed Impressions: CONCLUSION: 1. No acute abnormality is seen. 2. Encephalomalacia at the inferior frontal lobes being more prominent on the right.. Chest X-Ray 01/19/18599 Signed Impressions: CONCLUSION: No acute abnormality is seen. Hip X-Ray 01/19/18 0000 Signed Impressions: CONCLUSION: Interim nail and kuldeep fixation of left intertrochanteric fracture. Near-anatomic alignment. No acute complication demonstrated. PE at Discharge GENERAL: This is a well-nourished, well-developed patient, in no apparent distress. SKIN: Warm and dry. Pale HEENT: Normocephalic. Pupils equal round and reactive. Nose without bleeding. Airway patent. NECK: Trachea midline. CARDIOVASCULAR: Regular rate and rhythm without murmurs, gallops, or rubs. RESPIRATORY: Clear to auscultation. Breath sounds equal bilaterally. No wheezes , rales, or rhonchi. GASTROINTESTINAL: Abdomen soft, non-tender, nondistended. Bowel Sounds normoactive x4. MUSCULOSKELETAL: Extremities without clubbing, cyanosis. Left lower extremity edema +1. Left lower extremity Nagi wrap in place, incision site dressing clean dry and intact. NEUROLOGICAL: Awake and alert. Oriented to place, person. No focal neuro deficit. Moves all extremities. Normal speech. Hospital Course These are the medical issues addressed during this hospitalization: 77-year-old female who presented to the emergency department following a fall. Trip and fall, left hip fracture Left hip fracture, status post left hip IM nailing on January [address] Orona, orthopedics patient had a non-complicated postoperative course with pain control , bowel regimen, physical therapy rehab. Acute anemia due to blood loss from surgery acute, post procedure - transfuse 2 units of packed red blood cell and hemoglobin has remained stable. Closed head injury: -Patient hit her head when she fell and has an abrasion on her forehead. No loss of consciousness. -Head CT is negative for acute abnormality. Coronary artery disease: Patient states that she had a cardiac catheterization a few years ago and was told she had "mild blockage", but did not require stent placement. She follows with Dr. Arriola for cardiology. -Preoperative clearance from cardiology. -Continue statin, beta-spencer, aspirin Hypokalemia: -Supplement potassium and monitor labs. -Improved during hospitalization Hyponatremia: -Continue IV fluids and monitor labs. -Improved during hospitalization Tobacco abuse: -Counseled to quit smoking. Alcohol use:During hospitalization there was no signs of withdrawal. -Patient reports drinking 2-4 beers daily. -WA protocol. DVT prophylaxis: SCDs, Lovenox Patient has gained maximum benefit of consultation is ready for discharge to rehab. Pt Condition on Discharge: Good Discharge Disposition: Discharge to SNF Discharge Time: <= 30 minutes Discharge Instructions DIET: Follow Instructions for: Heart Healthy Diet Activities you can perform: Toe Touch Weight Bearing Other Activity Instructions: left lower leg Follow up Referrals: Orthopedics with Darren Orona MD New Medications: Aspirin (Aspirin) 325 Mg Tab 325 MG PO DAILY for Prevent Blood Clot, #30 TAB 0 Refills Start Aspirin after Lovenox is completed. Commode 3-in-1 (Commode 3-in-1) 1 Mis Mis EA .XX DIRECTED, #1 0 Refills Enoxaparin Inj (Enoxaparin Inj) 40 Mg/0.4 Ml Syr 40 MG SQ DAILY for Blood Clot Prevention for 10 Days, #10 SYRINGE 0 Refills Start Aspirin after Lovenox is completed. Hydrocodone-Acetaminophen (Asher) 5 Mg-325 Mg Tab 1 TAB PO Q4H PRN for PAIN, #50 TAB 0 Refills Walker with Front Wheels (Walker with Front Wheels) 1 Mis Mis EA .XX DIRECTED, #1 0 Refills Continued Medications: Aspirin (Aspirin) 81 Mg Chew 81 MG CHEW DAILY, TAB 0 Refills Carvedilol (Carvedilol) 25 Mg Tab 25 MG PO DAILY, TAB 0 Refills Cholecalciferol (Vitamin D-[address]) 1,000 Unit Tab 03348 UNITS PO DAILY for Nutritional Supplement, #1 BOTTLE 0 Refills Folic Acid (Folic Acid) 1 Mg Tablet 1 MG PO DAILY Hydrochlorothiazide (Hydrochlorothiazide) 25 Mg Tab 25 MG PO DAILY, TAB 0 Refills Nitroglycerin SL (Nitroglycerin SL) 0.4 Mg Subl 0.4 MG SL DIRECTED PRN for CHEST PAIN, TAB.SL 0 Refills ONE TABLET UNDER THE TONGUE NEEDED FOR CHEST PAIN, MAY REPEAT EVERY FIVE MINUTES FOR A TOTAL OF 3 DOSES OR CALL 911 IF NO RELIEF Rosuvastatin (Crestor) 5 Mg Tab 5 MG PO DAILY for Cholesterol Management, #30 TAB 0 Refills Berta Morrison MD Jan 21, 2018 10:25
[2018-01-21 11:21] LABS: HEMATOCRIT 26.5 % (35.0-46.0); HEMOGLOBIN 9.2 GM/DL (11.6-15.3); MEAN CELL VOLUME 92.5 FL (80.0-100.0); MEAN CORPUSCULAR HEMOGLOBIN 32.3 PG (27.0-34.0); MEAN CORPUSCULAR HGB CONC 34.9 % (32.0-36.0); MEAN PLATELET VOLUME 8.9 FL (7.0-11.0); PLATELET COUNT 107 TH/MM3 (150-450); RED BLOOD COUNT 2.86 MIL/MM3 (4.00-5.30); RED CELL DISTRIBUTION WIDTH 19.3 % (11.6-17.2); WHITE BLOOD COUNT 8.3 TH/MM3 (4.0-11.0)
[2018-01-21] MEDS: ENOXAPARIN SODIUM 40 MG/0.4 ML SYRINGE SQ SCH (12:00)
[2018-01-21 12:06] LABS: BICARBONATE 27.2 MEQ/L (21.0-32.0); CALCIUM 9.5 MG/DL (8.5-10.1); CREATININE 0.73 MG/DL (0.50-1.00)
--- NOTE | 2018-01-21 13:02 | PD.ORT.PN ---
Subjective Post Op Day #: 2 Subjective Remarks Patient is OOB in chair with minimal pain to the left hip. Objective Vitals Vital Signs Date Time Temp Pulse Resp B/P (MAP) Pulse Ox O2 Delivery O2 Flow Rate FiO2 01/21/18 08:00 100 Room Air 01/21/18 08:00 98.2 65 18 126/56 (79) 95 01/21/18 08:00 77 01/21/18 03:54 65 01/21/18 03:00 98.3 67 17 132/60 (84) 96 01/20/18 23:53 66 01/20/18 23:00 98.2 65 17 98/53 (68) 98 01/20/18 20:52 Room Air 01/20/18 20:12 98.6 70 18 92/54 (67) 95 01/20/18 19:51 72 01/20/18 16:00 97.9 66 18 107/53 (71) 95 01/20/18 13:30 98.1 77 18 117/56 (76) 96 I/O 01/20/18 01/20/18 01/20/18 01/21/18 01/21/18 01/21/18 07:00 15:00 23:00 07:00 15:00 23:00 Intake Total 680 ml 554 ml 840 ml Output Total 700 ml Balance 680 ml 554 ml 140 ml Intake Oral 480 ml 840 ml IV Total 200 ml 150 ml Packed Cells 400 ml Blood Product IV Normal Saline Flush 4 ml Output Urine Total 700 ml # Voids 4 # Bowel Movements 0 Result Diagram: 01/21/18 0851 01/21/18 0831 Procedures Left hip intertrochanteric hip fracture with ORIF with IMN Objective Remarks Dressing is C/D/I. Small hematoma to distal incision is resolving. EHL/TA/G intact. 2 + pedal pulse. Calf is soft and nontender. + SILT distally Assessment & Plan Ortho Post Op Day #: 2 Problem List: Assessment and Plan POD #2: left hip intertrochanteric fracture with ORIF with IMN Post op anemia 1. TTWB LLE 2. Lovenox followed by ASA for DVT prophylaxis. 3. Ice to the left hip PRN 4. Stable per ortho for discharge when medically stable 5. F/U in the office in 1-[address] Orona or JIMMY Lopez 6. Anemia being managed by medical. H&H improved with transfusion. Dk Oropeza Jan 21, 2018 13:02
--- NOTE | 2018-01-21 14:55 | PD.CARD.PN ---
Subjective Subjective Remarks alert in nad, denies chest pain or dyspnea Objective Medications Current Medications Medications (Trade) Dose Ordered Sig/Yaa Route Start Time Stop Time Status Last Admin (NS Flush) 2 ml UNSCH PRN IV FLUSH 01/19/18 07:00 (NS Flush) 2 ml BID IV FLUSH 01/19/18 09:00 01/21/18 08:46 (Tylenol) 650 mg Q4H PRN PO 01/19/18 07:00 (Zofran Odt) 4 mg Q6H PRN PO 01/19/18 07:15 (Narcan Inj) 0.4 mg UNSCH PRN IV PUSH 01/19/18 07:00 (Veronica-Colace) 1 tab BID PO 01/19/18 09:00 01/21/18 08:45 (Milk Of Magnesia Liq) 30 ml Q12H PRN PO 01/19/18 07:00 (Senokot) 17.2 mg Q12H PRN PO 01/19/18 07:00 (Dulcolax Supp) 10 mg DAILY PRN RECTAL 01/19/18 07:00 (Lactulose Liq) 30 ml DAILY PRN PO 01/19/18 07:00 Potassium Chloride/Sodium Chloride 1,000 ml @ 84 mls/hr [id number] IV 01/19/18 08:00 01/20/18 09:40 (Vasotec Inj) 1.25 mg Q6H PRN IV PUSH 01/19/18 09:00 (Romazicon Inj) 0.2 mg Q1M PRN IV PUSH 01/19/18 09:30 (Ativan) 1 mg Q4H PRN PO 01/19/18 09:30 01/20/18 17:42 (Ativan Inj) 1 mg Q4H PRN IV PUSH 01/19/18 09:30 (Ativan) 2 mg Q2H PRN PO 01/19/18 09:30 (Ativan Inj) 2 mg Q2H PRN IV PUSH 01/19/18 09:30 (Ativan Inj) 2 mg Q1H PRN IV PUSH 01/19/18 09:30 (Ativan Inj) 2 mg Q15M PRN IV PUSH 01/19/18 09:30 (Folate) 1 mg DAILY PO 01/19/18 09:30 01/21/18 08:45 (Hydrodiuril) 25 mg DAILY PO 01/19/18 09:30 01/21/18 08:45 Lactated Ringer's 1,000 ml @ 30 mls/hr Q24H PRN IV 01/19/18 09:45 01/22/18 09:44 Sodium Chloride 500 ml @ 30 mls/hr [id number] PRN IV 01/19/18 09:45 01/22/18 09:44 (Lopressor) 25 mg DIRECTOR DIABETES PRN PO 01/19/18 09:45 01/22/18 09:44 (Betadine 5% Antisepsis Kit) 1 applic DIRECTOR DIABETES PRN EACH NARE 01/19/18 09:45 01/22/18 09:44 (Chlorhexidine 2% Cloth) 3 pack DIRECTOR DIABETES PRN TOPICAL 01/19/18 09:45 01/22/18 09:44 (Coreg) 12.5 mg Q12HR PO 01/19/18 21:00 01/21/18 08:45 (Lipitor) 40 mg HS PO 01/19/18 21:00 01/20/18 20:49 Sodium Chloride 1,000 ml @ 100 mls/hr Q10H IV 01/19/18 12:58 (Lovenox Inj) 40 mg Q24H SQ 01/20/18 12:00 01/29/18 12:01 01/20/18 12:00 ([place] 5-325 Mg) 1 tab Q4H PRN PO 01/19/18 13:00 01/21/18 10:29 ([place] 5-325 Mg) 2 tab Q4H PRN PO 01/19/18 13:00 (Theragran M Tab) 1 tab BID PO 01/20/18 21:00 03/21/18 20:59 01/21/18 08:45 (Colace) 100 mg BID PO 01/20/18 21:00 01/21/18 08:45 (Mag-Al Plus Susp Liq) 30 ml Q6H PRN PO 01/19/18 13:00 (Ambien) 5 mg HS PRN PO 01/19/18 13:00 (Dulcolax Supp) 10 mg DAILY PRN RECTAL 01/19/18 13:00 (Milk Of Magnesia Liq) 30 ml DAILY PRN PO 01/19/18 13:00 (Narcan Inj) 0.4 mg UNSCH PRN IV PUSH 01/19/18 13:00 (Benadryl Inj) 25 mg Q6H PRN IV PUSH 01/19/18 13:00 (Morphine Inj) 2 mg Q3H PRN IV PUSH 01/19/18 13:00 Vital Signs / I&O Vital Signs Date Time Temp Pulse Resp B/P (MAP) Pulse Ox O2 Delivery O2 Flow Rate FiO2 01/21/18 08:00 100 Room Air 01/21/18 08:00 98.2 65 18 126/56 (79) 95 01/21/18 08:00 77 01/21/18 03:54 65 01/21/18 03:00 98.3 67 17 132/60 (84) 96 01/20/18 23:53 66 01/20/18 23:00 98.2 65 17 98/53 (68) 98 01/20/18 20:52 Room Air 01/20/18 20:12 98.6 70 18 92/54 (67) 95 01/20/18 19:51 72 01/20/18 16:00 97.9 66 18 107/53 (71) 95 I/O 01/20/18 01/20/18 01/20/18 01/21/18 01/21/18 01/21/18 07:00 15:00 23:00 07:00 15:00 23:00 Intake Total 680 ml 554 ml 840 ml Output Total 700 ml Balance 680 ml 554 ml 140 ml Intake Oral 480 ml 840 ml IV Total 200 ml 150 ml Packed Cells 400 ml Blood Product IV Normal Saline Flush 4 ml Output Urine Total 700 ml # Voids 4 # Bowel Movements 0 Physical Exam GENERAL: SKIN: Warm and dry. HEAD: Normocephalic. EYES: No scleral icterus. No injection or drainage. NECK: Supple, trachea midline. No JVD or lymphadenopathy. CARDIOVASCULAR: Regular rate and rhythm without murmurs, gallops, or rubs. RESPIRATORY: Breath sounds equal bilaterally. No accessory muscle use. GASTROINTESTINAL: Abdomen soft, non-tender, nondistended. MUSCULOSKELETAL: No cyanosis, or edema. BACK: Nontender without obvious deformity. No CVA tenderness. Laboratory Laboratory Tests Test 01/20/18 16:35 01/21/18 08:31 01/21/18 08:51 Hemoglobin 8.1 GM/DL 9.2 GM/DL Hematocrit 23.0 % 26.5 % Blood Urea Nitrogen 9 MG/DL Creatinine 0.73 MG/DL Random Glucose 106 MG/DL Calcium Level 9.5 MG/DL Sodium Level 131 MEQ/L Potassium Level 3.0 MEQ/L Chloride Level 93 MEQ/L Carbon Dioxide Level 27.2 MEQ/L Anion Gap 11 MEQ/L Estimat Glomerular Filtration Rate 77 ML/MIN White Blood Count 8.3 TH/MM3 Red Blood Count 2.86 MIL/MM3 Mean Corpuscular Volume 92.5 FL Mean Corpuscular Hemoglobin 32.3 PG Mean Corpuscular Hemoglobin Concent 34.9 % Red Cell Distribution Width 19.3 % Platelet Count 107 TH/MM3 Mean Platelet Volume 8.9 FL Assessment and Plan Problem List: (1) Atypical chest pain ICD Codes: R07.89 - Other chest pain (2) Anemia ICD Codes: D64.9 - Anemia, unspecified (3) Fall ICD Codes: W19.XXXA - Unspecified fall, initial encounter Status: Acute (4) Coronary artery disease ICD Codes: I25.10 - Atherosclerotic heart disease of [place] coronary artery without angina pectoris Status: Chronic (5) Closed left hip fracture ICD Codes: S72.002A - Fracture of unspecified part of neck of left femur, initial encounter for closed fracture Status: Acute (6) Tobacco abuse ICD Codes: Z72.0 - Tobacco abuse Status: Chronic Assessment and Plan 1.) CAD - pod # 2 hip surgery, assymptomatic from cv standpoint, start aspirin 81 mg qd if/when ok with orthopedic surgery, patient advised to discontinue tobacco Problem Qualifiers (1) Closed left hip fracture: Qualified Codes: S72.002A - Fracture of unspecified part of neck of left femur , initial encounter for closed fracture Mansoor Arriola MD Jan 21, 2018 14:55
[2018-01-21] MEDS: ATORVASTATIN 40 MG TAB PO SCH (22:11)
[2018-01-22] VITALS: BP 106/56; PULSE 74; RESP 16; TEMP 98.9; O2SAT 96
[2018-01-22] MEDS: SODIUM CHLOR 0.9% 1000 ML INJ 1,000 ML IV SCH ×2 (00:58→10:58)
[2018-01-22 04:00] VITALS: BP 138/63; PULSE 71; RESP 16; TEMP 98.7; O2SAT 95
[2018-01-22 04:03] LABS: HEMATOCRIT 22.1 % (35.0-46.0); HEMOGLOBIN 7.9 GM/DL (11.6-15.3); MEAN CORPUSCULAR HEMOGLOBIN 32.8 PG (27.0-34.0); MEAN CORPUSCULAR HGB CONC 35.6 % (32.0-36.0); MEAN PLATELET VOLUME 9.2 FL (7.0-11.0); PLATELET COUNT 105 TH/MM3 (150-450); RED CELL DISTRIBUTION WIDTH 18.9 % (11.6-17.2); WHITE BLOOD COUNT 8.1 TH/MM3 (4.0-11.0)
[2018-01-22] MEDS: NS + KCL 20 MEQ INJ 1,000 ML IV SCH (07:30)
[2018-01-22] MEDS ORDERED: THERM PO (07:34)
[2018-01-22] MEDS ORDERED: POTASSIUM CHLORIDE 20 MEQ CONTROLLED RELEASE TAB PO ONE (07:45)
[2018-01-22 08:00] VITALS: BP 139/69; PULSE 70; RESP 16; TEMP 98.3; O2SAT 95
[2018-01-22] MEDS: DOCUSATE SODIUM 50 MG/SENNA 8.6 MG TAB PO SCH (09:00)
[2018-01-22] MEDS: DOCUSATE SODIUM 100 MG CAP PO SCH (09:00)
[2018-01-22] MEDS: SODIUM CHLORIDE 0.9% FLUSH 10 ML FLUSH IV FLUSH SCH (09:00)
[2018-01-22] MEDS: CARVEDILOL 12.5 MG TAB PO SCH (09:27)
[2018-01-22] MEDS: MULTIVITAMINS/MINERALS THERAPEUTIC TAB PO SCH (09:27)
[2018-01-22] MEDS: HYDROCHLOROTHIAZIDE 25 MG TAB PO SCH (09:28)
[2018-01-22] MEDS: FOLIC ACID 1 MG TAB PO SCH (09:28)
[2018-01-22] MEDS: ACETAMINOPHEN/HYDROcodone 325 MG/5 MG TAB PO PRN (09:28)
[2018-01-22 10:28] VITALS: RESP 18
--- NOTE | 2018-01-22 11:01 | HHI.PR ---
Subjective Remarks Complaining of mild headache and this is not anything new from previous. States that Aleve does help in the past. Denies any shortness of breath. Denies any dizziness. Wants to go to rehab. Objective Vitals Vital Signs Date Time Temp Pulse Resp B/P (MAP) Pulse Ox O2 Delivery O2 Flow Rate FiO2 01/22/18 08:00 98.3 70 16 139/69 (92) 95 01/22/18 04:00 98.7 71 16 138/63 (88) 95 01/22/18 00:00 98.9 74 16 106/56 (73) 96 01/21/18 20:05 97.5 71 18 92/50 (64) 96 01/21/18 16:00 98.2 75 18 128/61 (83) 95 01/21/18 15:00 75 01/21/18 12:00 98.3 71 18 125/58 (80) 95 I/O 01/21/18 01/21/18 01/21/18 01/22/18 01/22/18 01/22/18 06:59 14:59 22:59 06:59 14:59 22:59 Intake Total 200 ml Output Total 3 ml Balance 197 ml Intake Oral 200 ml Output Urine Total 3 ml # Voids 3 # Bowel Movements 1 Result Diagram: 01/22/18 0315 01/21/18 0831 Objective Remarks GENERAL: This is a well-nourished, well-developed patient, in no apparent distress. CARDIOVASCULAR: Regular rate and rhythm RESPIRATORY: Clear to auscultation. Breath sounds equal bilaterally. No wheezes , rales, or rhonchi. MUSCULOSKELETAL: Left hip bandage clean dry intact NEURO: Alert & Oriented x4 to person, place, time, situation. Moves all ext x4 Procedures January 19 left hip fracture status post IM nailing with Dr. Orona A/P Problem List: (1) Closed left hip fracture ICD Code: S72.002A - Fracture of unspecified part of neck of left femur, initial encounter for closed fracture Status: Acute (2) Fall ICD Code: W19.XXXA - Unspecified fall, initial encounter Status: Acute (3) Hypokalemia ICD Code: E87.6 - Hypokalemia Status: Resolved (4) Hyponatremia ICD Code: E87.1 - Hypo-osmolality and hyponatremia Status: Resolved (5) Coronary artery disease ICD Code: I25.10 - Atherosclerotic heart disease of [place] coronary artery without angina pectoris Status: Chronic (6) Tobacco abuse ICD Code: Z72.0 - Tobacco abuse Status: Chronic (7) Anemia due to blood loss, acute ICD Code: D62 - Acute posthemorrhagic anemia Status: Acute Assessment and Plan 77-year-old female who presented to the emergency department following a fall. Trip and fall, left hip fracture Left hip fracture, status post operative day #3 left hip IM nailing -Continue postoperative course with Dr. Orona, physical therapy and pain control - Acute anemia due to blood loss from surgery, post procedure -Transfuse 1 unit PRBC during hospitalization -Monitor H&H, today's hemoglobin 7.9 and patient asymptomatic we will continue with iron supplements and multivitamin. Closed head injury: -Patient hit her head when she fell and has an abrasion on her forehead. No loss of consciousness. -Head CT is negative for acute abnormality. Pain control Coronary artery disease: Patient states that she had a cardiac catheterization a few years ago and was told she had "mild blockage", but did not require stent placement. She follows with Dr. Arriola for cardiology. -Preoperative clearance from cardiology. -Continue statin, beta-spencer. Discharge Planning Discharge to SNF today Problem Qualifiers (1) Closed left hip fracture: Qualified Codes: S72.002A - Fracture of unspecified part of neck of left femur , initial encounter for closed fracture Berta Morrison MD Jan 22, 2018 11:01
[2018-01-22] MEDS: ENOXAPARIN SODIUM 40 MG/0.4 ML SYRINGE SQ SCH (11:08)
[2018-01-22] MEDS ORDERED: FERROUS SULFATE 325 MG (65 MG ELEMENTAL IRON) TAB PO SCH (12:00)
[2018-01-22] MEDS ORDERED: NAPROXEN 250 MG TAB PO ONE (12:00)
== END 2018-01-22 11:56 | DRG 481 ==
LOC: NEPE 05:37 → NEDA 06:47 → N06A 07:45
PROVIDERS: ADMIT Family Medicine; ATTEND Family Medicine
PROC: 0QS706Z Reposition Left Upper Femur with Intramedullary Internal Fixation Device, Open Approach (ICD-10-PCS; principal; 2018-01-19 11:36)
PROC: 30233N1 Transfusion of Nonautologous Red Blood Cells into Peripheral Vein, Percutaneous Approach (ICD-10-PCS; 2018-01-20)
DX: S72.142A Displaced intertrochanteric fracture of left femur, initial encounter for closed fracture (principal); E87.1 Hypo-osmolality and hyponatremia; D69.6 Thrombocytopenia, unspecified; D62 Acute posthemorrhagic anemia; E78.5 Hyperlipidemia, unspecified; S01.81XA Laceration without foreign body of other part of head, initial encounter; I25.10 Atherosclerotic heart disease of native coronary artery without angina pectoris; M81.0 Age-related osteoporosis without current pathological fracture; E87.6 Hypokalemia; R73.9 Hyperglycemia, unspecified; F10.10 Alcohol abuse, uncomplicated; F17.210 Nicotine dependence, cigarettes, uncomplicated; W01.0XXA Fall on same level from slipping, tripping and stumbling without subsequent striking against object, initial encounter; Y92.009 Unspecified place in unspecified non-institutional (private) residence as the place of occurrence of the external cause
CPT/HCPCS: 36430; 70450; 71045; 73502; 76000; 80048; 80053; 82550; 83735; 85014; 85018; 85025; 85027; 85610; 85730; 86077; 86850; 86870; 86900; 86901; 86920; 86922; 93005; 94150; 99285; C1713; J0690; J1100; J1580; J1650; J2250; J2270; J2370; J2405; J2710; J3010; J3370; J3475; J3480; J7030; J7050; J7120; P9016